=== PATIENT | male | born 1975 | race Caucasian/White ===

== ENCOUNTER 2017-10-05 09:08 | Emergency (ER) | payer BC ==
[~2017-10-05] VITALS: Ht 175.3 cm; Wt 165.8 kg
[2017-10-05 09:53] LABS: EOSINOPHIL (%) 2.5 % (0-5); EOSINOPHIL COUNT 0.1 K/uL (0-0.3); HEMATOCRIT 45.2 % (38.0-50.0); IMMATURE GRANULOCYTE (%) 0.7 % (0.0-0.7); INSTRUMENT ABS NEUTROPHIL CT 3.3 K/uL; LYMPHOCYTE COUNT 1.5 K/uL (1.0-2.8); MCH 31.1 PG (29.0-34.0); MCHC 34.3 G/DL (30.0-36.0); MCV 90.6 FL (86-99); MONOCYTE (%) 8.8 % (3-12); MONOCYTE COUNT 0.5 K/uL (0-0.8); NEUTROPHIL (%) 59.9 % (45-76); NEUTROPHIL COUNT 3.3 K/uL (1.8-6.4); RBC DIS.WIDTH-CV 12.2 % (11.8-14.6); RBC DIS.WIDTH-SD 40.2 % (39-53); RED BLOOD COUNT 4.99 M/uL (4.00-5.50); WHITE BLOOD COUNT 5.5 K/uL (4.1-10.2)
[2017-10-05 09:58] LABS: CHLORIDE 101 mEq/L (99-109); POTASSIUM 4.8 mEq/L (3.7-5.4); SODIUM 135 mEq/L (136-147)
[2017-10-05 10:00] LABS: GLUCOSE 98 mg/dL (70-99)
[2017-10-05 10:02] LABS: ANION GAP 11 MEQ/L (2-14)
[2017-10-05 10:04] LABS: GFR ESTIMATE (CALCULATED) > 59 mL/min/
[2017-10-05 10:05] LABS: UREA NITROGEN (BUN) 19 mg/dL (9-23)
[2017-10-05 10:50] LABS: MEAN PLAT.VOLUME 12.2 uM^3 (9.0-12.4)
[2017-10-05] MEDS ORDERED: MEDROL DOSEPAK4 MG PO (11:34)
[2017-10-05] MEDS ORDERED: PERCOCET 5/31 TABLET PO (11:34)
[2017-10-05 11:44] VITALS: BP 137/80
== END 2017-10-05 11:51 | disposition home or self-care (01) ==
LOC: EME 09:08
PROVIDERS: Emergency Medicine
DX: R20.0 Anesthesia of skin (principal); I10 Essential (primary) hypertension; Z87.891 Personal history of nicotine dependence
CPT/HCPCS: 70450; 80048; 85025; 93005; 99281; 99283